=== PATIENT | male | born 1985 | race Native Hawaiian/Other Pacific Islander ===

== ENCOUNTER 2020-11-09 23:33 | Emergency (ER) | payer MEDICAID, MEDICARE ==
[~2020-11-09] VITALS: Ht 180.3 cm; Wt 90.9 kg
[2020-11-09] MEDS ORDERED: ACET-2247 PO (23:42)
[2020-11-09] MEDS ORDERED: PERCT PO (23:42)
[2020-11-09] MEDS ORDERED: IBUP-2070 PO (23:42)
[2020-11-09] MEDS ORDERED: FAMO20 PO (23:42)
[2020-11-10 00:54] VITALS: BP 141/85
== END 2020-11-10 01:14 | disposition home or self-care (01) ==
LOC: EMS 23:36
DX: S69.91XA Unspecified injury of right wrist, hand and finger(s), initial encounter (principal); Z76.5 Malingerer [conscious simulation]; W01.0XXA Fall on same level from slipping, tripping and stumbling without subsequent striking against object, initial encounter; Y93.89 Activity, other specified; Y92.511 Restaurant or cafe as the place of occurrence of the external cause; Y99.8 Other external cause status
CPT/HCPCS: 99283

== ENCOUNTER 2020-11-20 00:55 | Emergency (ER) | payer MEDICAID ==
[~2020-11-20] VITALS: Ht 180.3 cm; Wt 93.2 kg
[~2020-11-20 00:55] MED LIST: ACET-2247 PO; FAMO20 PO; IBUP-2070 PO; PERCT PO
[2020-11-20 00:58] VITALS: BP 142/96
[2020-11-20] MEDS ORDERED: KETOROLAC TROMETHAMINE 60 MG/2 ML VIAL IM ONE (01:45)
[2020-11-20] MEDS ORDERED: KETOCONAZOLE 2% 15 GM CREAM TP ONE (01:45)
== END 2020-11-20 02:37 | disposition home or self-care (01) ==
LOC: EMS 00:56
DX: B35.6 Tinea cruris (principal)
CPT/HCPCS: 96372; 99283; J1885

== ENCOUNTER 2021-02-07 07:23 | Emergency (ER) | payer MEDICAID ==
[~2021-02-07] VITALS: Ht 180.3 cm; Wt 93.2 kg
[2021-02-07] MEDS ORDERED: KETOROLAC TROMETHAMINE 30 MG/ML VIAL IM ONE (08:00)
[2021-02-07 08:21] LABS: BASOPHILS % (AUTO) 0.9 % (0.0-2.0); EOSINOPHILS % (AUTO) 2.5 % (1.0-6.0); HEMATOCRIT 47.4 % (41-53); HEMOGLOBIN 16.3 g/dL (13.5-17.5); LYMPHOCYTES # (AUTO) 2.9 K/uL (1.0-4.8); LYMPHOCYTES % (AUTO) 38.8 % (22.0-44.0); MEAN CORPUSCULAR HEMOGLOBIN 30.8 pg (26.0-34.0); MEAN CORPUSCULAR HGB CONC 34.4 G/dL (31.0-37.0); MEAN CORPUSCULAR VOLUME 90 fL (80-100); MONOCYTES # (AUTO) 0.5 K/uL (0.1-1.0); MONOCYTES % (AUTO) 7.1 % (2.0-9.0); NEUTROPHILS # (AUTO) 3.8 K/uL (1.8-7.7); NEUTROPHILS % (AUTO) 50.7 % (40.0-70.0); PLATELET COUNT (AUTO) 297 K/uL (150-450); RED BLOOD CELL COUNT(AUTO) 5.29 MIL/uL (4.50-5.90); RED CELL DISTRIBUTION WIDTH 12.9 % (11.5-14.5)
[2021-02-07 08:38] LABS: ANION GAP 12 mmol/L (8-16); CALCIUM, TOTAL 8.8 mg/dL (8.8-10.5); CARBON DIOXIDE 23 mmol/L (22-29); CHLORIDE 101 mmol/L (98-107); GLOMERULAR FILTR. RATE CALC > 60 mL/min (>60); GLUCOSE,RANDOM 139 mg/dL (70-110); POTASSIUM 3.9 mmol/L (3.5-5.1); SODIUM SERUM 136 mmol/L (136-145); UREA NITROGEN, BLOOD 18 mg/dL (7-18)
[2021-02-07 08:43] LABS: ALKALINE PHOSPHATASE 80 U/L (46-116); TOTAL PROTEIN, SERUM 7.8 g/dL (6.4-8.2)
[2021-02-07] MEDS ORDERED: ACETAMINOPHEN 500 MG TABLET PO ONE (09:15)
[2021-02-07 09:36] LABS: ALANINE AMINOTRANSFERASE 46 U/L (12-78); ASPARTATE AMINOTRANSFERASE 26 U/L (15-37)
[2021-02-07 10:00] VITALS: BP 136/84
== END 2021-02-07 10:18 | disposition home or self-care (01) ==
LOC: EMS 07:26
DX: S29.011A Strain of muscle and tendon of front wall of thorax, initial encounter (principal); W22.8XXA Striking against or struck by other objects, initial encounter; Y93.89 Activity, other specified; Y92.89 Other specified places as the place of occurrence of the external cause; Y99.8 Other external cause status
CPT/HCPCS: 36415; 71045; 71250; 80053; 84484; 85025; 85379; 93005; 96372; 99285; J1885

== ENCOUNTER 2021-03-29 23:33 | Emergency (ER) | payer MEDICAID ==
[~2021-03-29] VITALS: Ht 180.3 cm; Wt 96.4 kg
[2021-03-30 04:50] VITALS: BP 128/77
== END 2021-03-30 06:08 | disposition home or self-care (01) ==
LOC: EMS 23:34
DX: M79.672 Pain in left foot (principal); R20.0 Anesthesia of skin
CPT/HCPCS: 93971; 99285; Z7502

== ENCOUNTER 2021-05-28 19:57 | Emergency (ER) | payer MEDICAID ==
[~2021-05-28] VITALS: Ht 180.3 cm; Wt 95.5 kg
[2021-05-28 20:01] VITALS: BP 135/67
[2021-05-28] MEDS ORDERED: SIMV5TAB58 PO (21:44)
[2021-05-28] MEDS ORDERED: AMPH20CA7 PO (21:44)
[2021-05-28] MEDS ORDERED: TAMS-13 PO (21:44)
[2021-05-28] MEDS ORDERED: EMTR1TAB13 PO (21:44)
[2021-05-28] MEDS ORDERED: TADA20TA43 PO (21:44)
[2021-05-28] MEDS ORDERED: ERGO500093 PO (21:44)
[2021-05-28] MEDS ORDERED: ACYC400T20 PO (21:44)
[2021-05-28] MEDS ORDERED: ONDANSETRON HCL 4 MG/2 ML VIAL IVP ONE (21:45)
[2021-05-28] MEDS ORDERED: MORPHINE SULFATE 2 MG/ML SYRINGE IVP ONE (21:45)
[2021-05-28] MEDS ORDERED: ACETAMINOPHEN 500 MG TABLET PO ONE (21:45)
[2021-05-28] MEDS ORDERED: FAMOTIDINE 10 MG/ML 2 ML VIAL IVP ONE (21:45)
[2021-05-28] MEDS ORDERED: MAG HYDROX/AL HYDROX/SIMETH 30 ML SUSP UDCUP PO ONE (21:45)
[2021-05-28 21:49] LABS: BASOPHILS % (AUTO) 0.8 % (0.0-2.0); EOSINOPHILS % (AUTO) 1.7 % (1.0-6.0); HEMATOCRIT 47.4 % (41-53); HEMOGLOBIN 16.2 g/dL (13.5-17.5); LYMPHOCYTES # (AUTO) 2.1 K/uL (1.0-4.8); LYMPHOCYTES % (AUTO) 25.9 % (22.0-44.0); MEAN CORPUSCULAR HGB CONC 34.2 G/dL (31.0-37.0); MEAN CORPUSCULAR VOLUME 91 fL (80-100); MONOCYTES % (AUTO) 12.5 % (2.0-9.0); NEUTROPHILS # (AUTO) 4.9 K/uL (1.8-7.7); NEUTROPHILS % (AUTO) 59.1 % (40.0-70.0); PLATELET COUNT (AUTO) 280 K/uL (150-450); RED BLOOD CELL COUNT(AUTO) 5.24 MIL/uL (4.50-5.90)
[2021-05-28 21:51] LABS: APPEARANCE,URINE CLOUDY (CLEAR); BILIRUBIN,URINE NEGATIVE (NEGATIVE); GLUCOSE, URINE (UA) NEGATIVE (NEGATIVE); KETONES,URINE NEGATIVE (NEGATIVE); LEUKOCYTE ESTERASE ,URINE NEGATIVE (NEGATIVE); NITRATE,URINE NEGATIVE (NEGATIVE); OCCULT BLOOD,URINE SMALL (NEGATIVE); PROTEIN,URINE NEGATIVE (NEGATIVE); UROBILINOGEN,URINE 0.2 mg/dL (<=1.0)
[2021-05-28] MEDS ORDERED: SODIUM CHLORIDE 0.9% 1,000 ML IV ONE (22:00)
[2021-05-28 22:02] LABS: BACTERIA,URINE Rare /HPF (None Seen); WBC,URINE 0-2 /HPF (0-5)
[2021-05-28 22:04] LABS: ANION GAP 6 mmol/L (8-16); CALCIUM, TOTAL 9.2 mg/dL (8.8-10.5); CARBON DIOXIDE 33 mmol/L (22-29); CHLORIDE 102 mmol/L (98-107); CREATININE 1.08 mg/dL (0.60-1.30); GLOMERULAR FILTR. RATE CALC > 60 mL/min (>60); GLUCOSE,RANDOM 120 mg/dL (70-110); POTASSIUM 3.6 mmol/L (3.5-5.1); SODIUM SERUM 141 mmol/L (136-145); UREA NITROGEN, BLOOD 14 mg/dL (7-18)
[2021-05-28 22:07] LABS: ALANINE AMINOTRANSFERASE 73 U/L (12-78); ALBUMIN 4.3 g/dL (3.4-5.0); ALKALINE PHOSPHATASE 65 U/L (46-116); ASPARTATE AMINOTRANSFERASE 30 U/L (15-37); BILIRUBIN,TOTAL 1.2 mg/dL (0.1-1.0); LIPASE 90 U/L (73-393); TOTAL PROTEIN, SERUM 8.3 g/dL (6.4-8.2)
[2021-05-28] MEDS ORDERED: IOHEXOL 350 MG/ML 100 ML VIAL ONE (23:09)
[2021-05-28] MEDS ORDERED: SODIUM CHLORIDE 0.9% 100 ML ONE (23:09)
== END 2021-05-29 01:20 | disposition home or self-care (01) ==
LOC: EMS 20:04
DX: R10.32 Left lower quadrant pain (principal); R19.7 Diarrhea, unspecified; Z79.899 Other long term (current) drug therapy
CPT/HCPCS: 36415; 74177; 80053; 81001; 83690; 84484; 85025; 87430; 96361; 96374; 99285; J3490; J7050; Q9967

== ENCOUNTER 2021-08-20 14:12 | Emergency (ER) | payer MEDICAID ==
[~2021-08-20] VITALS: Ht 180.3 cm; Wt 91.4 kg
[~2021-08-20 14:12] MED LIST changes: +ACYC400T20 PO; +DEXT20CA4 PO; +EMTR1TAB13 PO; +ERGO500093 PO; -IBUP-2070 PO; +SIMV5TAB58 PO; +TADA20TA43 PO; +TAMS-13 PO
[2021-08-20 16:45] LABS: BASOPHILS % (AUTO) 0.6 % (0.0-2.0); EOSINOPHILS % (AUTO) 1.2 % (1.0-6.0); HEMATOCRIT 45.5 % (41-53); HEMOGLOBIN 15.8 g/dL (13.5-17.5); LYMPHOCYTES # (AUTO) 1.1 K/uL (1.0-4.8); LYMPHOCYTES % (AUTO) 12.2 % (22.0-44.0); MEAN CORPUSCULAR HEMOGLOBIN 30.7 pg (26.0-34.0); MEAN CORPUSCULAR HGB CONC 34.9 G/dL (31.0-37.0); MEAN CORPUSCULAR VOLUME 88 fL (80-100); MONOCYTES # (AUTO) 0.9 K/uL (0.1-1.0); MONOCYTES % (AUTO) 10.1 % (2.0-9.0); NEUTROPHILS # (AUTO) 6.9 K/uL (1.8-7.7); NEUTROPHILS % (AUTO) 75.9 % (40.0-70.0); PLATELET COUNT (AUTO) 319 K/uL (150-450); RED BLOOD CELL COUNT(AUTO) 5.16 MIL/uL (4.50-5.90); RED CELL DISTRIBUTION WIDTH 13.1 % (11.5-14.5)
[2021-08-20 16:56] LABS: ANION GAP 10 mmol/L (8-16); CALCIUM, TOTAL 9.3 mg/dL (8.8-10.5); CARBON DIOXIDE 28 mmol/L (22-29); CHLORIDE 102 mmol/L (98-107); GLOMERULAR FILTR. RATE CALC > 60 mL/min (>60); GLUCOSE,RANDOM 100 mg/dL (70-110); POTASSIUM 3.8 mmol/L (3.5-5.1); SODIUM SERUM 140 mmol/L (136-145); UREA NITROGEN, BLOOD 17 mg/dL (7-18)
[2021-08-20 17:02] LABS: ALANINE AMINOTRANSFERASE 59 U/L (12-78); ALKALINE PHOSPHATASE 72 U/L (46-116); ASPARTATE AMINOTRANSFERASE 17 U/L (15-37); BILIRUBIN,TOTAL 0.9 mg/dL (0.1-1.0); LIPASE 91 U/L (73-393); TOTAL PROTEIN, SERUM 7.9 g/dL (6.4-8.2)
[2021-08-20 17:59] LABS: APPEARANCE,URINE CLEAR (CLEAR); BILIRUBIN,URINE NEGATIVE (NEGATIVE); GLUCOSE, URINE (UA) NEGATIVE (NEGATIVE); KETONES,URINE NEGATIVE (NEGATIVE); LEUKOCYTE ESTERASE ,URINE NEGATIVE (NEGATIVE); NITRATE,URINE NEGATIVE (NEGATIVE); OCCULT BLOOD,URINE NEGATIVE (NEGATIVE); PROTEIN,URINE NEGATIVE (NEGATIVE); UROBILINOGEN,URINE 0.2 mg/dL (<=1.0)
[2021-08-20 18:57] LABS: BACTERIA,URINE None Seen /HPF (None Seen); RBC,URINE None Seen /HPF (0-2); WBC,URINE None Seen /HPF (0-5)
[2021-08-20] MEDS ORDERED: ACETAMINOPHEN 500 MG TABLET PO ONE (19:30)
[2021-08-20] MEDS ORDERED: IBUPROFEN 400 MG TABLET PO ONE (19:30)
[2021-08-20 20:22] VITALS: BP 126/76
[2021-08-20 20:47] LABS: COVID AG,FIA SOURCE NASAL SWAB
== END 2021-08-20 20:45 | disposition home or self-care (01) ==
LOC: EMS 14:12
DX: U07.1 COVID-19 (principal)
CPT/HCPCS: 36415; 80053; 81001; 83690; 85025; 87426; 99284; C9803

== ENCOUNTER 2023-04-15 22:10 | Emergency (ER) | payer MEDICAID ==
[~2023-04-15] VITALS: Ht 180.3 cm; Wt 95.5 kg
[2023-04-15 22:18] VITALS: BP 146/80; PULSE 100; RESP 18; TEMP 98.7
== END 2023-04-15 23:37 | disposition home or self-care (01) ==
LOC: EMS 22:11
DX: T18.0XXA Foreign body in mouth, initial encounter (principal); K13.79 Other lesions of oral mucosa; Z98.890 Other specified postprocedural states
CPT/HCPCS: 99284; Z7502